=== PATIENT | male | born 1975 | race Caucasian/White ===

== ENCOUNTER 2022-06-27 17:44 | Emergency (ER) | payer BC, MEDICAID, SELFPAY ==
[2022-06-27 17:54] VITALS: BP 171/101; PULSE 94; RESP 20; TEMP 37.6; O2SAT 96; BMI 29.8
--- NOTE | 2022-06-27 18:19 | W.ED.GENADLT ---
HPI - General Adult General: Chief complaint: Fever Stated complaint: fever/chills/post tetanus Time Seen by Provider: 06/27/22 18:02 History of Present Illness: Patient is a 47-year-old male comes to the ED with body aches and fever. 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 Today he woke up and was having soreness and pain in his left arm and also had an mild fever with a temperature at home of 101 and also generalized body aches. Denies in any nausea/vomiting or diarrhea. Denies any recent sick contacts. The laceration was finger appears to be healing well and there is no redness, swelling or any drainage from laceration site. Patient stated he was not sent home on any prophylactic antibiotic after injury. Associated symptoms: Deny chest pain, dyspnea, headache(s), nausea, rash, palpitations or vomiting Review of Systems Const: Reports: fever(s) and body aches; Denies: chills or fatigue Eyes: Denies: change in vision or eye discomfort ENMT: Denies: throat pain, odynophagia, nasal discharge or nasal congestion Card: Denies: chest pain, palpitations, edema, swelling of feet/ankles, dyspnea on exertion or orthopnea Resp: Denies: dyspnea, productive cough or non-productive cough GI: Denies: abdominal pain, nausea, vomiting, diarrhea, constipation or hematochezia : Denies: flank pain, difficulty urinating, dysuria or hematuria Musc: Denies: neck pain, back pain or extremity swelling Skin/Breast: Denies: rash or new lesions Neuro: Denies: headache(s), numbness in extremities or weakness in extremities PFS ED PFSH: Medical History (Updated 06/27/22 @ 22:28 by KAI John) No pertinent family history Surgical History (Updated 06/27/22 @ 22:28 by KAI John) No pertinent past surgical history Physical Exam Const: COMMON NORMALS: no acute distress, patient oriented x3 and alert GENERAL APPEARANCE: cooperative HENMT: COMMON NORMALS: normocephalic HEAD & SCALP: normocephalic MOUTH: Normal oral and palatal mucosa present THROAT: posterior oropharynx normal and uvula midline Neck/C-Spine: COMMON NORMALS: supple GENERAL: Yes normal visual inspection Resp: COMMON NORMALS: normal respiratory effort, No retractions, No use of accessory muscles and clear to auscultation bilaterally AUSCULTATION: clear to auscultation bilaterally Cardio: COMMON NORMALS: regular rate, regular rhythm, S1 normal heart sound present, S2 normal heart sound present, No gallops present (Cardio), No clicks present (Cardio), No murmurs present (Cardio) and Peripheral pulses 2+ throughout RATE: regular rate RHYTHM: regular rhythm HEART SOUNDS: S1 normal heart sound present and S2 normal heart sound present PERIPHERAL PULSES: Peripheral pulses 2+ throughout GI: COMMON NORMALS: Normal to inspection, nondistended, normoactive bowel sounds present, Soft to palpation, non-tender and no masses PALPATION: Yes Soft to palpation : COMMON NORMALS: Yes no CVA tenderness BLADDER/KIDNEY EXAM: Yes no CVA tenderness Back/Pelvis: COMMON NORMALS: no CVA tenderness Extremity: NARRATIVE EXTREMITY EXAM: Patient has a laceration on the left index finger. [address] and laceration appears to be healing well. No signs of any infection, erythema, warmth or drainage noted. No red streaking up arm. GENERAL: Yes normal exam except as noted Neuro: COMMON NORMALS: patient oriented x3 SENSORIUM/ORIENTATION: Yes alert GAIT: Yes Normal gait present Skin: GENERAL SKIN EXAM: dry skin Course Vital Signs: Vital signs: Vital Signs Temperature 99.7 F H 06/27/22 17:54 Pulse Rate 94 06/27/22 17:54 Respiratory Rate 20 H 06/27/22 17:54 Blood Pressure 171/101 06/27/22 17:54 Pulse Oximetry 96 06/27/22 17:54 Oxygen Delivery Me thod 06/27/22 17:54 [facility] - General Adult Medical Decision Making Patient is a 47-year-old male who comes to the ED with fever and body aches. Patient had laceration of finger sutured up yesterday at [facility] and they gave him a shot of tetanus in his left arm. Today he was having a sore left arm with low-grade fever and body aches. Denies any recent sick contacts. Vitals are stable patient is afebrile here in the ED. Exam of patient shows laceration of left index finger healing well with [address] No signs of any infection noted. Rest of exam is benign. Patient's symptoms likely due to to side effect of tetanus vaccine. He was discharged home and given a prophylactic prescription of an antibiotic for his finger laceration. Return ED precautions given. Patient understood agree with plan. Discharge Plan Discharge Patient Disposition: Home Clinical Impression: Tetanus vaccine side effect Condition: Stable Prescriptions: New cephalexin 500 mg capsule 500 mg PO Q6H 4 Days Qty: 16 0RF Discharge Orders: Discharge ED (Routine); Ordered 06/27/22 Ordered By: Juanjo Beck Discharge Diet: Regular Discharge Activity: Increase activity as tolerated Activity Restrictions/Additional Instructions: Follow-up with medical provider as directed in the next 5 to 7 days to have stitches removed. Keep laceration site clean daily with soap and water and then apply triple antibiotic ointment and keep it covered with bandage. take medications as prescribed. Return to the ER or your medical provider if condition worsens. Please read and understand discharge instructions. Thank you for choosing [facility] for your healthcare needs today. Please realize this is an emergency room and that we are providing you with a medical screening exam and this may not be complete and all inclusive of all the testing and or work up that you may need to determine your ailment or severity of your illness. It is very important that you follow up as instructed or that you return to the Emergency Department should you have concerns or if your condition changes or worsens in any way. Coding Level of Care Code ED Menu Planner for Iam Ayala Exam Comprehensive
[2022-06-27] MEDS: cephALEXin 500 mg Capsule PO (18:30)
== END 2022-06-27 18:34 | disposition home or self-care (01) ==
PROVIDERS: Emergency Provider Physician Assistant
DX: R50.83 Postvaccination fever (principal); T50.A95A Adverse effect of other bacterial vaccines, initial encounter; S61.211D Laceration without foreign body of left index finger without damage to nail, subsequent encounter; W31.89XD Contact with other specified machinery, subsequent encounter
CPT/HCPCS: 99283

== ENCOUNTER 2022-07-12 19:41 | Inpatient (IN) | payer BC, SELFPAY ==
[2022-07-12 19:48] VITALS: BP 187/116; PULSE 81; RESP 188; TEMP 36.6; O2SAT 96; BMI 28.5
--- NOTE | 2022-07-12 20:00 | PC.NURSE ---
assumed care of patient at this time.
--- NOTE | 2022-07-12 20:04 | W.ED.GENADLT ---
HPI - General Adult General: Chief complaint: Psychiatric Symptoms Stated complaint: depression Time Seen by Provider: 07/12/22 19:55 History of Present Illness: HPI: [47]yo patient w/ hx of depression presenting to the emergency room for worsening depression. Patient tells me that he does not currently have a plan but he is feelings of suicidal. On arrival, the patient is AAOx3 and cooperative with my evaluation. No focal complaints of chest pain, shortness of breath, palpitations, N/V, focal GI/ complaints. Currently denies SI/HI. No complaints of hallucinations. Onset: chronic Duration: ongoing Location: home Severity: severe Associated symptoms: Deny chest pain, dyspnea, nausea, rash, palpitations or vomiting Review of Systems Const: Denies: fever(s) or chills Eyes: Denies: change in vision ENMT: Denies: mouth pain Card: Denies: chest pain or palpitations Resp: Denies: dyspnea or non-productive cough GI: Denies: abdominal pain, nausea, vomiting or diarrhea : Denies: dysuria Musc: Denies: extremity pain Skin/Breast: Denies: rash or new lesions Neuro: Denies: weakness in extremities Psych: Reports: depression and suicidal ideation Latrell/Lymph: Denies: easy bruising PFSH ED PFSH: Medical History Depression Surgical History No pertinent past surgical history Social History Smoking and tobacco status: never smoked Alcohol intake: never Substance/Drug Use: never Physical Exam Const: COMMON NORMALS: alert HENMT: COMMON NORMALS: atraumatic HEAD & SCALP: atraumatic MOUTH: moist mucous membranes not abnormal Eye: COMMON NORMALS: EOMs intact bilaterally and conjunctivae normal CONJUNCTIVA: Yes conjunctivae normal Neck/C-Spine: COMMON NORMALS: full ROM and supple Resp: COMMON NORMALS: normal respiratory effort and clear to auscultation bilaterally AUSCULTATION: clear to auscultation bilaterally Cardio: COMMON NORMALS: regular rate RATE: regular rate GI: COMMON NORMALS: Soft to palpation and non-tender PALPATION: Yes Soft to palpation Extremity: COMMON NORMALS: full ROM Neuro: SENSORIUM/ORIENTATION: Yes alert MOTOR EXAM: No Abnormal motor strength present and Other motor observations present (no focal motor deficits) Psych: COMMON NORMALS: speech normal SPEECH: Yes normal speech MOOD & AFFECT: Yes depressed mood Course Vital Signs: Vital signs: Vital Signs Temperature 97.9 F 07/12/22 19:48 Pulse Rate 81 07/12/22 19:48 Respiratory Rate 188 H 07/12/22 19:48 Blood Pressure 187/116 07/12/22 19:48 Pulse Oximetry 96 07/12/22 19:48 Oxygen Delivery Me thod 07/12/22 19:48 MDM - General Adult Medical Decision Making [47]yo patient w/ hx of depression presenting for SI and worsenign depression. HDS, exam within normal limit Thoughts are linear and organized, and the patient has no AH/VH, or HI. Clinically the patient displays no overt toxidrome; they are well appearing, with low suspicion for toxic ingestion given history and exam. Symptoms unlikely 2/2 anemia, hypothyroidism, infection, or ICH. Workup: CBC, CMP, Lipase, salicylate/tylenol, serum ethanol, UDS Lab findings: wnl [8:45pm] On reassessment, labs and workup wnl. Patient is hemodynamically stable with no acute medical complaints. Case discussed with psychiatric provider Dr. Montalvo at [facility] psych inpatient with recommendation for admission Disposition: Psych Discharge Plan Discharge Patient Disposition: Admitted As Inpatient Clinical Impression: Depression, Depression with suicidal ideation Condition: Stable Coding Level of Care Code ED Switchboard Operator Receptionist for Iam Fwd Exam Comprehensive
[2022-07-12 20:24] VITALS: PULSE 97; RESP 16; O2SAT 97
[2022-07-12 20:33] LABS: Basophils # 0.1 10^3/uL (0.0-0.1); Basophils % 0.6 %; Eosinophils # 0.2 10^3/uL (0.0-0.8); Eosinophils % 1.7 %; Hemoglobin 15.7 g/dL (11.7-16.6); Lymphocytes # 3.6 10^3/uL (0.8-4.8); Lymphocytes % 32.1 %; Mean Corpuscular HGB Conc 34.1 g/dL (30.0-36.0); Mean Corpuscular Hemoglobin 31.2 pg (28.0-34.0); Mean Corpuscular Volume 91.3 fl (80-94); Mean Platelet Volume 11.5 fL (7.4-10.4); Monocytes # 0.7 10^3/uL (0.2-0.9); Monocytes % 5.8 %; Neutrophils # 6.62 10^3/uL (1.8-7.7); Neutrophils % 59.5 %; Nucleated Red Blood Cells % 0 %; Platelet Count 388 10^3/cmm (130-400); Red Blood Count 5.04 10^6/uL (4.1-5.3); Red Cell Distribution Width 11.7 % (12.1-15.1); White Blood Count 11.1 10^3/uL (4.0-10.0)
[2022-07-12 20:50] LABS: Alanine Aminotransferase 24 U/L (0-41); Albumin Level 4.2 g/dL (3.5-5.2); Alkaline Phosphatase 84 U/L (40-130); Anion Gap 14.5 (5-19); Aspartate Amino Transferase 15 U/L (0-40); Blood Urea Nitrogen 18 mg/dL (6-20); Calcium 9.7 mg/dL (8.5-10.5); Carbon Dioxide 25 mmol/L (22-29); Chloride 104 mmol/L (98-107); Globulin 3.1 g/dL (1.3-4.6); Glomerular Filtration Rate 90.8 mL/min (90-130); Glucose 90 mg/dL (65-115); Lipase 22 U/L (13-60); Osmolality Calculated 291 mOsm/kg (285-295); Potassium 3.5 mmol/L (3.5-5.1); Sodium 140 mmol/L (136-145); Total Bilirubin 0.2 mg/dL (0.15-1.2); Total Protein 7.3 g/dL (6.6-8.7)
[2022-07-12 20:51] LABS: Acetaminophen < 5.0 ug/mL (10-30); Alcohol Level < 10 mg/dL (0-10); Salicylate < 0.3 mg/dL (3-10)
[2022-07-12 21:00] VITALS: BP 143/58; PULSE 79; RESP 19; O2SAT 98
[2022-07-12 21:05] LABS: Amphetamines Screen Urine Negative (Negative); Barbiturates Screen Urine Negative (Negative); Benzodiazepines Screen Urine Negative (Negative); Cocaine Screen Urine Negative (Negative); Opiate Screen Urine Negative (Negative); PCP Screen Urine Negative (Negative); THC Screen Urine Negative (Negative)
[2022-07-12 21:55] VITALS: O2SAT 100
[2022-07-12 22:11] VITALS: BP 144/87; PULSE 78; RESP 20; TEMP 36.8; O2SAT 98
[2022-07-12] MEDS: trazodone 50 mg Tablet PO (22:28)
[2022-07-12] MEDS: hyDROXYzine 25 mg Capsule 50 MG PO (22:28)
[2022-07-13 06:00] VITALS: BP 139/83; PULSE 74; RESP 17; TEMP 36.4; O2SAT 94
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
[2022-07-13 14:00] VITALS: BP 148/96; PULSE 94; RESP 16; TEMP 36.8; O2SAT 95
[2022-07-13] MEDS: fluoxetine 20 mg Capsule PO (17:33)
[2022-07-13 20:04] VITALS: PULSE 95; RESP 18; TEMP 36.7
[2022-07-13] MEDS: hyDROXYzine 25 mg Capsule 50 MG PO (20:19)
[2022-07-14 06:00] VITALS: BP 162/104; PULSE 84; RESP 18; O2SAT 98
[2022-07-14] MEDS: fluoxetine 20 mg Capsule PO (08:01)
[2022-07-14] MEDS: OLANZapine 5 mg ODT PO ×2 (09:36→16:08)
[2022-07-14] MEDS: nicotine 4 mg lozenge MUCOUS MEM ×3 (09:48→19:20)
[2022-07-14 14:00] VITALS: BP 145/83; PULSE 70; RESP 18; TEMP 36.8; O2SAT 93
[2022-07-14] MEDS: propranolol 20 mg Tablet PO ×2 (16:10→21:17)
--- NOTE | 2022-07-14 17:52 | P.NPUPN_ITS ---
Subjective NPU Subjective: Patient presents today reporting that he is not feeling any better but he does not feel worse. We discussed avoiding some as needed's and sticking to the propranolol for breakthrough anxiety. We discussed considering discharge when he was feeling safe and that the medications might offer him some relief with overwhelming anxiety and depression that he has been reporting. He reported he has been sleeping a lot identified how he probably needed to get some rest. We discussed taking the when can I discharge question 1 day at a time. Mental Status Exam MSE Comments: This is an overweight white male with limited grooming and eye contact. No abnormal movements except for psychomotor retardation. Cooperative with exam in moderate distress. Speech was decreased rate and volume. Mood described as depressed, affect is less tearful and labile. Thought process, organized. Thought content: patient denies suicidal or homicidal ideation, no delusions reported or noted and denies any auditory or visual hallucinations. Attention and concentration are intact and memory appeared reliable but none were formally tested. He is alert and oriented three times. Insight and judgment are fair. Impulse control is fair. Vitals/I&O/Wt Last Vital Signs Temp 97.6 F 07/14/22 19:41 Pulse 73 07/14/22 19:41 Resp 18 07/14/22 19:41 BP 144/101 07/14/22 19:41 Pulse Ox 94 07/14/22 19:41 O2 Del Method 07/14/22 14:00 Data NPU : 07/12/22 20:24 07/12/22 20:24 A&P Assessment and plan (1) Major depressive disorder, recurrent: Status: Acute (2) Adjustment disorder with mixed disturbance of emotions and conduct: Status: Acute (3) Depression with suicidal ideation: Status: Acute (4) Anxiety disorder, unspecified: Status: Acute Plan This is a 47 year old white male with positive trauma and genetic loading for addiction issues who presents after recently losing his children reporting depression and anxiety over the process of getting his children back which has been slow moving and open to starting medications at this time. 1. Started Prozac 20 mg po qam 2. Started Propranolol 20 mg poq tid prn 3. Encourage individual, group and milieu therapy 4. Continue q-15 minute check for safety 5. Recommend sober living treatment at the highest level of care to which the patient is willing to commit. Involuntary Hold Information 96 Hour Hold: 96 Hour Involuntary Admission: No Attestations NPU Medical Necessity Statement*: Inpatient hospitalization is medically necessary and the clinically appropriate intervention at this time. We will monitor medications and make changes as indicated. Likely length of stay is 1-4 days. Coding Level of Care Code Acute Shot Core Drill Operator for Chg Fwd Diagnoses Major depressive disorder, recurrent F33.9 Adjustment disorder with mixed disturbance of emotions and conduct F43.25 Depression with suicidal ideation F32.A; R45.851 Anxiety disorder, unspecified F41.9
[2022-07-14 19:41] VITALS: BP 144/101; PULSE 73; RESP 18; TEMP 36.4; O2SAT 94
[2022-07-14] MEDS: trazodone 50 mg Tablet PO (21:18)
[2022-07-15 06:00] VITALS: BP 143/89; PULSE 70; RESP 18; TEMP 36.7; O2SAT 95
[2022-07-15] MEDS: nicotine 4 mg lozenge MUCOUS MEM ×4 (07:37→13:18)
[2022-07-15] MEDS: hyDROXYzine 25 mg Capsule 50 MG PO (08:31)
[2022-07-15] MEDS: fluoxetine 20 mg Capsule PO (08:31)
--- NOTE | 2022-07-15 11:18 | W.PM.NPUDCS ---
Diagnoses at Discharge Discharge Diagnosis (1) Major depressive disorder, recurrent: Status: Acute (2) Adjustment disorder with mixed disturbance of emotions and conduct: Status: Acute (3) Depression with suicidal ideation: Status: Resolved (4) Anxiety disorder, unspecified: Status: Acute Reason for Visit Reason for Visit: depression Involuntary Hold Information 96 Hour Hold: 96 Hour Involuntary Admission: No Mental Status Exam MSE Comments: This is an overweight white male with limited grooming and eye contact. No abnormal movements except for psychomotor retardation. Cooperative with exam in moderate distress. Speech was decreased rate and volume. Mood described as , affect is less tearful and labile. Thought process, organized. Thought content: patient denies suicidal or homicidal ideation, no delusions reported or noted and denies any auditory or visual hallucinations. Attention and concentration are intact and memory appeared reliable but none were formally tested. He is alert and oriented three times. Insight and judgment are fair. Impulse control is fair. Discharge Data Studies Completed and Pending: Laboratory Results WBC 11.1 10^3/uL (4.0 -10.0) H 07/12/22 20:24 RBC 5.04 10^6/uL (4.1 -5.3) 07/12/22 20:24 Hgb 15.7 g/dL (11.7-1 6.6) 07/12/22 20:24 Hct 46.0 % (42.0-52.0 ) 07/12/22 20:24 MCV 91.3 fl (80-94) 07/12/22 20:24 MCH 31.2 pg (28.0-34. 0) 07/12/22 20:24 MCHC 34.1 g/dL (30.0-3 6.0) 07/12/22 20:24 RDW 11.7 % (12.1-15.1 ) L 07/12/22 20:24 Plt Count 388 10^3/cmm (130 -400) 07/12/22 20:24 MPV 11.5 fL (7.4-10.4 ) H 07/12/22 20:24 Neut % (Auto) 59.5 % 07/12/22 20:24 Lymph % (Auto) 32.1 % 07/12/22 20:24 Elliott % (Auto) 5.8 % 07/12/22 20:24 Eos % (Auto) 1.7 % 07/12/22 20:24 Baso % (Auto) 0.6 % 07/12/22 20:24 Neut # (Auto) 6.62 10^3/uL (1.8 -7.7) 07/12/22 20:24 Lymph # (Auto) 3.6 10^3/uL (0.8- 4.8) 07/12/22 20:24 Elliott # (Auto) 0.7 10^3/uL (0.2- 0.9) 07/12/22 20:24 Eos # (Auto) 0.2 10^3/uL (0.0- 0.8) 07/12/22 20:24 Baso # (Auto) 0.1 10^3/uL (0.0- 0.1) 07/12/22 20:24 Nucleated RBC % (a uto) 0 % 07/12/22 20:24 Nucleated RBCs # 0.0 /100WBC 07/12/22 20:24 Sodium 140 mmol/L (136-1 45) 07/12/22 20:24 Potassium 3.5 mmol/L (3.5-5 .1) 07/12/22 20:24 Chloride 104 mmol/L (98-10 7) 07/12/22 20:24 Carbon Dioxide 25 mmol/L (22-29) 07/12/22 20:24 Anion Gap 14.5 (5-19) 07/12/22 20:24 BUN 18 mg/dL (6-20) 07/12/22 20:24 Creatinine 0.9 mg/dL (0.7-1. 2) 07/12/22 20:24 GFR Calculation 90.8 mL/min (90-1 30) 07/12/22 20:24 Glucose 90 mg/dL (65-115) 07/12/22 20:24 Calculated Osmolal ity 291 mOsm/kg (285- 295) 07/12/22 20:24 Calcium 9.7 mg/dL (8.5-10 .5) 07/12/22 20:24 Total Bilirubin 0.2 mg/dL (0.15-1 .2) 07/12/22 20:24 AST 15 U/L (0-40) 07/12/22 20:24 ALT 24 U/L (0-41) 07/12/22 20:24 Alkaline Phosphata se 84 U/L (40-130) 07/12/22 20:24 Total Protein 7.3 g/dL (6.6-8.7 ) 07/12/22 20:24 Albumin 4.2 g/dL (3.5-5.2 ) 07/12/22 20:24 Globulin 3.1 g/dL (1.3-4.6 ) 07/12/22 20:24 Lipase 22 U/L (13-60) 07/12/22 20:24 Salicylates < 0.3 mg/dL (3-10 ) L 07/12/22 20:24 Urine Opiates Scre en Negative ng/mL (N egative) 07/12/22 20:26 Acetaminophen < 5.0 ug/mL (10-3 0) L 07/12/22 20:24 Ur Barbiturates Sc reen Negative ng/mL (N egative) 07/12/22 20:26 Ur Phencyclidine S crn Negative ng/mL (N egative) 07/12/22 20:26 Ur Amphetamines Sc reen Negative ng/mL (N egative) 07/12/22 20:26 U Benzodiazepines Scrn Negative ng/mL (N egative) 07/12/22 20:26 Urine Cocaine Scre en Negative ng/mL (N egative) 07/12/22 20:26 U Marijuana (THC) Screen Negative ng/mL (N egative) 07/12/22 20:26 Ethyl Alcohol < 10 mg/dL (0-10) 07/12/22 20:24 Vitals: Last Vital Signs Temp 98.0 F 07/15/22 06:00 Pulse 70 07/15/22 06:00 Resp 18 07/15/22 06:00 BP 143/89 07/15/22 06:00 Pulse Ox 95 07/15/22 06:00 O2 Del Method 07/14/22 14:00 Discharge Plan Discharge Patient Disposition: Home Condition: Stable Prescriptions: New trazodone 50 mg Tablet 50 mg PO BEDTIME PRN (Reason: Sleep) 30 Days Qty: 30 1RF propranolol 20 mg Tablet 20 mg PO TID PRN (Reason: Anxiety) 30 Days Qty: 30 1RF fluoxetine 20 mg Capsule 20 mg PO DAILY 30 Days Qty: 30 1RF Discharge Orders: Discharge Order (Routine); Ordered 07/15/22 Ordered By: Braulio Montalvo Referrals: [facility] [Outside] - 1-3 days (Carolynn Chance will call for an initial assessment) Hari Clark MD [Physician] - 07/29/22 1:00 pm Discharge Diet: Regular Discharge Activity: Resume usual activity Patient Instructions: Depression (DC), Anxiety (ED), Opioid Safety Discharge Attestations NPU Time Spent in Discharge Care*: less than 30 min Specific Discharge Activities: Specific discharge activities: educating patient, discussing with machine adjuster leader case trim/social workers/dc planners, documenting/other paperwork and evaluating patient/reviewing data Coding Level of Care Code Acute Chg FW DC note Diagnoses Major depressive disorder, recurrent F33.9 Adjustment disorder with mixed disturbance of emotions and conduct F43.25 Depression with suicidal ideation F32.A; R45.851 Anxiety disorder, unspecified F41.9
[2022-07-15 12:22] VITALS: BP 143/89; PULSE 70; RESP 18; TEMP 36.7; O2SAT 95
== END 2022-07-15 13:27 | disposition home or self-care (01) | DRG 885 ==
LOC: ER 20:03 → NP 21:22
PROVIDERS: Admitting Provider Psychiatry & Neurology Psychiatry; Emergency Provider Emergency Medicine; Visit Provider Psychiatry & Neurology Psychiatry
DX: F33.9 Major depressive disorder, recurrent, unspecified (principal); R45.851 Suicidal ideations; F17.210 Nicotine dependence, cigarettes, uncomplicated; F43.25 Adjustment disorder with mixed disturbance of emotions and conduct; F41.9 Anxiety disorder, unspecified
CPT/HCPCS: 80053; 80306; 80307; 83690; 85025; 97165; 99285

== ENCOUNTER 2022-09-28 10:08 | Emergency (ER) | payer BC, MEDICAID, SELFPAY ==
[2022-09-28 10:49] VITALS: BP 158/87; PULSE 108; RESP 20; TEMP 37.7; O2SAT 97; BMI 28.6
--- NOTE | 2022-09-28 10:55 | XR_ITS ---
WS: [id number] XR chest 1V portable [id number] REASON FOR EXAM: fever FINDINGS: The heart and mediastinum are within normal limits. Azygos lobe and vein, normal variant, present. Calcified granulomatous disease bilaterally. No active pulmonary parenchymal or pleural disease. XR/XR chest 1V portable [id number] IMPRESSION: No acute chest abnormality.
--- NOTE | 2022-09-28 11:24 | CT_ITS ---
WS: [id number] CT HEAD TECHNIQUE: Noncontrast CT of the head obtained from the skullbase to the vertex. CLINICAL INFORMATION: left side numbness COMPARISON: None. DLP: 1019.[address] scans at [facility] use at least one of these dose optimization techniques: automated e xposure control; mA and/or kV adjustment per patient size (includes targeted exams where dose is matc hed to clinical indication); or iterative reconstruction. FINDINGS: No evidence of intracranial hemorrhage or mass effect. Ventricular system and basal cisterns are schneider nt. No extra-axial fluid collections. No evidence of mass or mass effect. Normal martinez-white different iation. Mild mucosal thickening ethmoid air cells. Mastoid air cells are well aerated. CT/CT head wo con* [id number] IMPRESSION: 1. No evidence of intracranial hemorrhage or mass effect. 2. No acute intracranial findings.
--- NOTE | 2022-09-28 11:30 | W.ED.GENADLT ---
HPI - General Adult General: Chief complaint: Fever Stated complaint: flu like symptoms Time Seen by Provider: 09/28/22 10:56 History of Present Illness: Patient is a 47-year-old male comes to the ED with multiple complaints. He is having some left-sided numbness in his left hand and left foot. Symptoms started 2 days ago. His other complaint is flulike symptoms a cough, nasal congestion and drainage, fevers, chills and body aches for the past 4 days. He has had a couple episodes of emesis but has been able to keep p.o. fluids down for the past 24 hours. Patient has a daily tobacco smoker. Associated symptoms: Reports nausea and vomiting; Deny chest pain, dyspnea, headache(s), rash or palpitations Review of Systems Const: Reports: fever(s), chills and body aches; Denies: fatigue Eyes: Denies: change in vision or eye discomfort ENMT: Reports: nasal discharge and nasal congestion; Denies: throat pain or odynophagia Card: Denies: chest pain, palpitations, edema, swelling of feet/ankles, dyspnea on exertion or orthopnea Resp: Reports: productive cough; Denies: dyspnea or non-productive cough GI: Reports: nausea and vomiting; Denies: abdominal pain, diarrhea, constipation or hematochezia : Denies: flank pain, difficulty urinating, dysuria or hematuria Musc: Denies: neck pain, back pain or extremity swelling Skin/Breast: Denies: rash or new lesions Neuro: Denies: headache(s), numbness in extremities or weakness in extremities FORMERLY [facility], [facility]–1983 ED PFSH: Medical History Depression Depression Surgical History No pertinent past surgical history Family History Brother Suicide Social History Smoking and tobacco status: never smoked Alcohol intake: never Physical Exam Const: COMMON NORMALS: patient oriented x3 and alert GENERAL APPEARANCE: cooperative HENMT: COMMON NORMALS: normocephalic HEAD & SCALP: normocephalic MOUTH: Normal oral and palatal mucosa present THROAT: posterior oropharynx normal and uvula midline Eye: COMMON NORMALS: Equal, round and reactive pupils present and EOMs intact bilaterally GENERAL EYE: appearance normal, both eyes and all related structures PUPIL: Yes Equal, round and reactive pupils present Neck/C-Spine: COMMON NORMALS: supple GENERAL: Yes normal visual inspection Lymph: LYMPHATIC: no lymphadenopathy noted Resp: COMMON NORMALS: normal respiratory effort, No retractions, No use of accessory muscles and clear to auscultation bilaterally AUSCULTATION: clear to auscultation bilaterally Cardio: COMMON NORMALS: regular rate, regular rhythm, S1 normal heart sound present, S2 normal heart sound present, No gallops present (Cardio), No clicks present (Cardio), No murmurs present (Cardio) and Peripheral pulses 2+ throughout RATE: regular rate RHYTHM: regular rhythm HEART SOUNDS: S1 normal heart sound present and S2 normal heart sound present PERIPHERAL PULSES: Peripheral pulses 2+ throughout GI: COMMON NORMALS: Normal to inspection, nondistended, normoactive bowel sounds present, Soft to palpation, non-tender and no masses PALPATION: Yes Soft to palpation : COMMON NORMALS: Yes no CVA tenderness BLADDER/KIDNEY EXAM: Yes no CVA tenderness Back/Pelvis: COMMON NORMALS: no CVA tenderness Extremity: GENERAL: Yes normal exam except as noted LEFT UPPER EXTREMITY: Yes wrist Left wrist: Yes inspection (Normal) and Yes special tests Left wrist special tests: Phalen's test: Positive (+ Phalen's test left wrist) Neuro: COMMON NORMALS: patient oriented x3, CN's II-XII intact bilaterally, moves all extremities, no focal motor deficits and no sensory deficits noted SENSORIUM/ORIENTATION: Yes alert SENSORY EXAM: Yes extremities (intact) MOTOR EXAM: 5/5 motor strength present throughout Skin: COMMON NORMALS: no rashes or lesions noted GENERAL SKIN EXAM: no rashes or lesions noted and dry skin Course Vital Signs: Vital signs: Vital Signs Temperature 99.9 F H 09/28/22 10:49 Pulse Rate 108 H 09/28/22 10:49 Respiratory Rate 20 H 09/28/22 10:49 Blood Pressure 158/87 09/28/22 10:49 Pulse Oximetry 97 09/28/22 10:49 Oxygen Delivery Me thod 09/28/22 10:49 [facility] - General Adult Medical Decision Making Patient is a 47-year-old male comes to the ED with multiple complaints. He is having some left-sided numbness in his left hand and left foot. Symptoms started 2 days ago. His other complaint is flulike symptoms a cough, nasal congestion and drainage, fevers, chills and body aches for the past 4 days. He has had a couple episodes of emesis but has been able to keep p.o. fluids down for the past 24 hours. Vitals are stable. Exam shows positive Phalen's sign on left wrist indicative of carpal tunnel syndrome. The rest of exam is benign. Neuro exam showed no deficits. Head CT showed no acute findings. Chest x-ray showed no acute findings. COVID was negative. Patient was given dose of Toradol and then Tylenol here in the ED to help with body aches and headache. Patient was diagnosed with bronchitis and carpal tunnel syndrome. He was discharged home with a prescription for azithromycin, Medrol Dosepak and Tessalon Perles. Follow-up with PCP within the next week for reevaluation. Return to ED precautions given. Patient understood and agreed with plan. Lab Data Radiology Impressions Chest X-Ray 09/28/22 10:55 IMPRESSION: No acute chest abnormality. Head CT 09/28/22 11:24 IMPRESSION: 1. No evidence of intracranial hemorrhage or mass effect. 2. No acute intracranial findings. Laboratory Results SARS-CoV-2 Ag (Rapid) negative (Negative) 09/28/22 12:11 Discharge Plan Discharge Patient Disposition: Home Clinical Impression: Bronchitis, Carpal tunnel syndrome of left wrist Condition: Stable Prescriptions: New Medrol (Ray) 4 mg tablets,dose pack See Rx Instructions .ROUTE .COMPLEX Qty: 21 0RF Rx Instructions: orally per package directions azithromycin 250 mg tablet See Rx Instructions .ROUTE .COMPLEX Qty: 6 0RF Rx Instructions: For 250 mg dose pack: take 500 mg today (day 1), then 250 mg for 4 days (days 2-5) benzonatate 100 mg capsule 100 mg PO TID PRN (Reason: cough) Qty: 20 0RF No Action trazodone 50 mg Tablet 50 mg PO BEDTIME PRN (Reason: Sleep) 30 Days Qty: 30 1RF propranolol 20 mg Tablet 20 mg PO TID PRN (Reason: Anxiety) 30 Days Qty: 30 1RF fluoxetine 20 mg Capsule 20 mg PO DAILY 30 Days Qty: 30 1RF Discharge Orders: Discharge ED (Routine); Ordered 09/28/22 Ordered By: Juanjo Beck Discharge Diet: Regular Discharge Activity: Increase activity as tolerated Patient Instructions: Bronchitis (Acute) - Adult Activity Restrictions/Additional Instructions: Follow-up with medical provider as directed in the next 5-7 days for reevaluation. Take medications as prescribed. Return to the ER or your medical provider if condition worsens. Please read and understand discharge instructions. Thank you for choosing [facility] for your healthcare needs today. Please realize this is an emergency room and that we are providing you with a medical screening exam and this may not be complete and all inclusive of all the testing and or work up that you may need to determine your ailment or severity of your illness. It is very important that you follow up as instructed or that you return to the Emergency Department should you have concerns or if your condition changes or worsens in any way. Coding Level of Care Code ED Front End Java Developer for Iam Ayala Exam Comprehensive
[2022-09-28] MEDS: ketorolac 60 mg/2 mL INJ IM (11:50)
[2022-09-28] MEDS: acetaminophen 500 mg Tablet 1000 MG PO (13:20)
[2022-09-28 13:28] LABS: SARS Covid-2 Antigen negative (Negative)
== END 2022-09-28 13:25 | disposition home or self-care (01) ==
PROVIDERS: Emergency Provider Physician Assistant
DX: J40 Bronchitis, not specified as acute or chronic (principal); G56.02 Carpal tunnel syndrome, left upper limb
CPT/HCPCS: 70450; 71045; 87426; 96372; 99285; J1885

== ENCOUNTER 2024-12-26 18:27 | Emergency (ER) | payer SELFPAY ==
[2024-12-26 18:48] VITALS: BP 159/98; PULSE 110; RESP 16; TEMP 36.9; O2SAT 97; BMI 24.4
--- NOTE | 2024-12-26 20:41 | CTR_ITS ---
PROCEDURE INFORMATION: Exam: CT Abdomen And Pelvis Without Contrast Exam date and time: 12/26/2024 9:18 PM Age: 49 years old Clinical indication: Abdominal pain; Flank; Left lower quadrant (llq); Additional info: Abd pain TECHNIQUE: Imaging protocol: Computed tomography of the abdomen and pelvis without contrast. Radiation optimization: All CT scans at this facility use at least one of these dose optimization techniques: automated exposure control; mA and/or kV adjustment per patient size (includes targeted exams where dose is matched to clinical indication); or iterative reconstruction. COMPARISON: CR XR chest 1V portable [id number] 09/28/2022 12:30 PM RADIATION DOSE METRICS: Total DLP (mGy-cm): 718.53 FINDINGS: Lungs: Unremarkable. Liver: Normal. No mass. Gallbladder and biliary ducts: Normal. No calcified stones. No ductal dilation. Pancreas: Normal. No ductal dilation. Spleen: Normal. No splenomegaly. Adrenal glands: Normal. No mass. Kidneys and ureters: No hydronephrosis or obstructing calculi bilaterally. Mild bilateral perinephric fat stranding. Stomach and bowel: Large colonic stool burden. Appendix: No evidence of appendicitis. Intraperitoneal space: Unremarkable. No free air. No significant fluid collection. Vasculature: Unremarkable. No abdominal aortic aneurysm. Lymph nodes: Unremarkable. No enlarged lymph nodes. Urinary bladder: Diffuse circumferential bladder wall thickening. Reproductive: Unremarkable as visualized. Bones/joints: Unremarkable. No acute fracture. Soft tissues: Small bilateral inguinal hernias. CT/CT kidney stone [id number] IMPRESSION: 1. Diffuse circumferential bladder wall thickening. Correlate with urinalysis for cystitis. 2. No hydronephrosis or obstructing calculi bilaterally, however there is mild bilateral perinephric fat stranding. Findings are nonspecific but may be seen with underlying infectious process. 3. Large colonic stool burden, which may be seen with constipation.
[2024-12-26 20:46] LABS: Bilirubin Urine Negative (Negative); Blood Urine Negative (Negative); Glucose Urine UA Negative (Normal); Ketones Urine Negative (Negative); Leukocyte Esterase Urine Negative (Negative); Nitrate Urine Negative (Negative); Protein Urine Negative (Negative); Urine Appearance Cloudy (CLEAR); Urine Color Yellow (Yellow); pH Urine 6.5 (5-7)
--- NOTE | 2024-12-26 20:53 | W.ED.ABDPA2 ---
HPI - Abdominal Pain General: Chief Complaint: Abdominal Pain Stated Complaint: low left abd/ side pain Time Seen by Provider: 12/26/24 20:31 Source: patient Mode of arrival: ambulatory Limitations: no limitations History of Present Illness: 49-year-old male states been having left lower quadrant abdominal pain while some flank pain he states been going on for 2 to 3 months. He states it is worsened he is having sharp pains he rates the pain a 5 out of 10 currently denies any fevers denies any diarrhea denies any dysuria he states he is a heavy drinker. Associated Symptoms: Denies chills, dysuria and fever(s) Related Data Previous Rx's ?Medication ?Instructions ?Recorded ondansetron 4 mg disintegrating 4 mg PO Q6H PRN nausea and 12/26/24 tablet vomiting #14 tabs pantoprazole 40 mg tablet,delayed 40 mg PO DAILY #60 tabs 12/26/24 release (Protonix) polyethylene glycol 3350 17 gram 17 g PO DAILY PRN constipation #14 12/26/24 oral powder packet (Miralax) ea Allergies Allergy/AdvReac Type Severity Reaction Status Date / Time No Known Allergies Allergy Verified 12/26/24 18:48 Review of Systems Const: Denies: fever(s), chills, body aches or change in appetite ENMT: Denies: throat pain or dental pain Card: Denies: chest pain Resp: Denies: dyspnea GI: Reports: abdominal pain : Denies: dysuria Musc: Denies: neck pain or back pain Skin/Breast: Denies: rash Neuro: Denies: headache(s) PFSH ED PFSH: Medical History Depression Depression Surgical History No pertinent past surgical history Family History Brother Suicide Social History Smoking and tobacco/nicotine status: never used tobacco/nicotine Alcohol intake: never Substance/Drug Use: never Physical Exam Const: COMMON NORMALS: no acute distress, patient oriented x3 and healthy appearing HENMT: COMMON NORMALS: normocephalic and atraumatic HEAD & SCALP: normocephalic and atraumatic Eye: COMMON NORMALS: conjunctivae normal CONJUNCTIVA: Yes conjunctivae normal Neck/C-Spine: COMMON NORMALS: full ROM and supple Chest: COMMONS NORMALS: normal inspection of the chest Resp: COMMON NORMALS: normal respiratory effort Cardio: COMMON NORMALS: regular rate, regular rhythm and No murmurs present (Cardio) RATE: regular rate RHYTHM: regular rhythm GI: COMMON NORMALS: Normal to inspection, nondistended, normoactive bowel sounds present, Soft to palpation and no masses PALPATION: Yes Soft to palpation and Yes Tenderness to palpation present (GI) Details: LLQ Extremity: COMMON NORMALS: normal to inspection and full ROM Neuro: COMMON NORMALS: patient oriented x3, moves all extremities and no focal motor deficits Psych: COMMON NORMALS: mental status grossly normal, Normal thought process present and cooperative THOUGHT PROCESS: Normal thought process present Skin: COMMON NORMALS: no rashes or lesions noted and no wounds GENERAL SKIN EXAM: no rashes or lesions noted Course Vital Signs: Vital signs: Vital Signs Temperature 98.4 F 12/26/24 18:48 Pulse Rate 110 H 12/26/24 18:48 Respiratory Rate 16 12/26/24 18:48 Blood Pressure 159/98 12/26/24 18:48 Pulse Oximetry 97 12/26/24 18:48 MDM - Abdominal Pain Medical Decision Making Patient presents here with abdominal pain CT scan blood work is normal no signs of acute surgical abdomen we will get him follow-up with surgeon will place him on Protonix he is return if worsening he understands agrees to plan Medical Records I reviewed the patient's medical records. Lab Data I reviewed the patient's lab results. 12/26/24 21:02 12/26/24 21:02 Labs/Radiology: Radiology Impressions Abdomen/Pelvis CT 12/26/24 20:41 IMPRESSION: 1. Diffuse circumferential bladder wall thickening. Correlate with urinalysis for cystitis. 2. No hydronephrosis or obstructing calculi bilaterally, however there is mild bilateral perinephric fat stranding. Findings are nonspecific but may be seen with underlying infectious process. 3. Large colonic stool burden, which may be seen with constipation. Laboratory Results WBC 7.60 10^3/uL (3.29-11.43) 12/26/24 21:02 RBC 5.74 10^6/uL (3.85-5.65) H 12/26/24 21:02 Hgb 18.10 g/dL (11.27-16.99) H 12/26/24 21:02 Hct 55.1 % (37-53) H 12/26/24 21:02 MCV 96.0 fl (82-101) 12/26/24 21:02 MCH 31.5 pg (27-33) 12/26/24 21:02 MCHC 32.8 g/dL (30-55) 12/26/24 21:02 RDW 13.0 % (12.1-15.1) 12/26/24 21:02 Plt Count 287 10^3/cmm (157-399) 12/26/24 21:02 MPV 11.1 fL (7.4-10.4) H 12/26/24 21:02 Neut % (Auto) 56.0 % 12/26/24 21:02 Lymph % (Auto) 34.3 % 12/26/24 21:02 Wilkin % (Auto) 6.2 % 12/26/24 21:02 Eos % (Auto) 2.2 % 12/26/24 21:02 Baso % (Auto) 0.9 % 12/26/24 21:02 Neut # (Auto) 4.25 10^3/uL (1.8-7.7) 12/26/24 21:02 Lymph # (Auto) 2.6 10^3/uL (0.8-4.8) 12/26/24 21:02 Wilkin # (Auto) 0.5 10^3/uL (0.2-0.9) 12/26/24 21:02 Eos # (Auto) 0.2 10^3/uL (0.0-0.8) 12/26/24 21:02 Baso # (Auto) 0.1 10^3/uL (0.0-0.1) 12/26/24 21:02 Nucleated RBC % (auto) 0 % 12/26/24 21:02 Nucleated RBCs # 0.0 /100WBC 12/26/24 21:02 Sodium 137 mmol/L (136-145) 12/26/24 21:02 Potassium 4.3 mmol/L (3.5-5.1) 12/26/24 21:02 Chloride 102 mmol/L (98-107) 12/26/24 21:02 Carbon Dioxide 20 mmol/L (22-29) L 12/26/24 21:02 Anion Gap 19.3 (5-19) H 12/26/24 21:02 BUN 11 mg/dL (6-20) 12/26/24 21:02 Creatinine 0.9 mg/dL (0.7-1.2) 12/26/24 21:02 GFR Calculation 90.1 mL/min (90-130) 12/26/24 21:02 Glucose 131 mg/dL (65-115) H 12/26/24 21:02 Calculated Osmolality 285 mOsm/kg (285-295) 12/26/24 21:02 Calcium 9.2 mg/dL (8.5-10.5) 12/26/24 21:02 Total Bilirubin 0.3 mg/dL (0.15-1.2) 12/26/24 21:02 AST 37 U/L (0-40) 12/26/24 21:02 ALT 47 U/L (0-41) H 12/26/24 21:02 Alkaline Phosphatase 95 U/L (40-130) 12/26/24 21:02 Total Protein 7.6 g/dL (6.6-8.7) 12/26/24 21:02 Albumin 4.4 g/dL (3.5-5.2) 12/26/24 21:02 Globulin 3.2 g/dL (1.3-4.6) 12/26/24 21: Lipase 18 U/L (13-60) 12/26/24 21:02 Urine Color Yellow (Yellow) 12/26/24 20:40 Urine Appearance Cloudy (CLEAR) A 12/26/24 20:40 Urine pH 6.5 (5-7) 12/26/24 20:40 Ur Specific H[place]ill 1.010 (1.005-1.030) 12/26/24 20:40 Urine Protein Negative (Negative) 12/26/24 20:40 Urine Glucose (UA) Negative (Normal) 12/26/24 20:40 Urine Ketones Negative (Negative) 12/26/24 20:40 Urine Blood Negative (Negative) 12/26/24 20:40 Urine Nitrate Negative (Negative) 02/25/25 20:40 Urine Bilirubin Negative (Negative) 12/26/24 20:40 Urine Urobilinogen 1.0 mg/dL (Negative) 12/26/24 20:40 Ur Leukocyte Esterase Negative (Negative) 12/26/24 20:40 Urine RBC None /hpf (0-2) 12/26/24 20:40 Urine WBC 0-4 /hpf (0-5) H 12/26/24 20:40 Ur Squamous Epith Cells None /hpf (0-5) 12/26/24 20:40 Amorphous Sediment Not Reportable 12/26/24 20:40 Urine Bacteria Trace /hpf (NONE) 12/26/24 20:40 All radiology interpretation(s) finalized by discharge Discharge Plan Discharge Patient Disposition: Home Clinical Impression: Abdominal pain, Constipation Condition: Stable Prescriptions: New polyethylene glycol 3350 [Miralax] 17 gram powder in packet 17 g PO DAILY PRN (Reason: constipation) Qty: 14 0RF pantoprazole [Protonix] 40 mg tablet,delayed release (DR/EC) 40 mg PO DAILY Qty: 60 0RF ondansetron 4 mg tablet,disintegrating 4 mg PO Q6H PRN (Reason: nausea and vomiting) Qty: 14 0RF Discharge Orders: Discharge ED (Routine); Ordered 12/26/24 Ordered By: Bradley Bennett Referrals: Pascual Mcmahon MD [Physician] - 4-7 days Discharge Diet: Advance as tolerated Discharge Activity: Resume usual activity Patient Instructions: Constipation (ED), Abdominal Pain (ED) Print Language: Mauritian Coding Level of Care Code ED Burglar Alarm Mechanic for Iam Ayala
[2024-12-26 21:11] LABS: Add Urine Microscopic? YES; Bacteria Urine TRACE /hpf; UA Manual Slide Review YES; UA Slide Review UA Slide Review Perf; WBC Urine 0-4 /hpf (0-5)
[2024-12-26 21:13] LABS: Basophils # 0.1 10^3/uL (0.0-0.1); Basophils % 0.9 %; Eosinophils # 0.2 10^3/uL (0.0-0.8); Eosinophils % 2.2 %; Hematocrit 55.1 % (37-53); Lymphocytes # 2.6 10^3/uL (0.8-4.8); Lymphocytes % 34.3 %; Mean Corpuscular HGB Conc 32.8 g/dL (30-55); Mean Corpuscular Hemoglobin 31.5 pg (27-33); Mean Platelet Volume 11.1 fL (7.4-10.4); Monocytes # 0.5 10^3/uL (0.2-0.9); Monocytes % 6.2 %; Neutrophils # 4.25 10^3/uL (1.8-7.7); Nucleated Red Blood Cells % 0 %; Platelet Count 287 10^3/cmm (157-399); Red Blood Count 5.74 10^6/uL (3.85-5.65)
[2024-12-26 21:30] LABS: Alanine Aminotransferase 47 U/L (0-41); Albumin Level 4.4 g/dL (3.5-5.2); Alkaline Phosphatase 95 U/L (40-130); Aspartate Amino Transferase 37 U/L (0-40); Blood Urea Nitrogen 11 mg/dL (6-20); Calcium 9.2 mg/dL (8.5-10.5); Carbon Dioxide 20 mmol/L (22-29); Chloride 102 mmol/L (98-107); Creatinine Clr Calc Pharmacy 112.4711; Globulin 3.2 g/dL (1.3-4.6); Glomerular Filtration Rate 90.1 mL/min (90-130); Glucose 131 mg/dL (65-115); Lipase 18 U/L (13-60); Osmolality Calculated 285 mOsm/kg (285-295); Sodium 137 mmol/L (136-145); Total Bilirubin 0.3 mg/dL (0.15-1.2); Total Protein 7.6 g/dL (6.6-8.7)
[2024-12-26 21:37] LABS: Anion Gap 19.3 (5-19); Potassium 4.3 mmol/L (3.5-5.1)
[2024-12-26 22:00] VITALS: BP 147/94; PULSE 101; RESP 16; O2SAT 98
--- NOTE | 2024-12-27 07:37 | DCPLANNER ---
Message sent to general surgery for follow up- Patient presents here with abdominal pain CT scan blood work is normal no signs of acute surgical abdomen we will get him follow-up with surgeon will place him on Protonix he is return if worsening he understands agrees to plan
== END 2024-12-26 22:43 | disposition home or self-care (01) ==
PROVIDERS: Emergency Provider Emergency Medicine
DX: R10.32 Left lower quadrant pain (principal); K59.00 Constipation, unspecified
CPT/HCPCS: 74176; 80053; 81001; 83690; 85025; 99284

== ENCOUNTER 2024-12-29 09:52 | Emergency (ER) | payer SELFPAY ==
[2024-12-29 10:07] VITALS: BP 198/119; PULSE 84; RESP 18; TEMP 36.7; O2SAT 94; BMI 27.1
--- NOTE | 2024-12-29 10:27 | CT_ITS ---
WS: [id number] CT ABDOMEN PELVIS TECHNIQUE: Contrast-enhanced CT of the abdomen and pelvis with coronal and sagittal reformatted images. CLINICAL INFORMATION: L lower abdominal pain COMPARISON: None. DLP: 650.[address] scans at [facility] use at least one of these dose optimization techniques: automated exposure control; mA and/or kV adjustment per patient size (includes targeted exams where dose is matched to clinical indication); or iterative reconstruction. FINDINGS: Hepatomegaly. Diffuse fatty infiltration of the liver. Adrenal glands are normal. Small RIGHT adrenal nodule measuring 11 mm likely adenoma. Normal GE junction. Splenic granulomas. No hydronephrosis in either kidney. Tiny RIGHT renal cyst. Prostate enlargement measuring 4.2 cm. Normal sigmoid colon. Normal appendix. Normal caliber abdominal aorta. Celiac and SMA are patent. Normal pancreatic parenchymal enhancement. Fat-containing umbilical hernia. No other acute findings. CT/CT abdomen pelvis w con* [id number] IMPRESSION: 1. Hepatomegaly with steatosis. 2. No hydronephrosis in the kidney. 3. Normal appendix. 4. Mild prostate enlargement measuring 4.3 cm. Recommend correlation PSA. 5. No other suspicious findings. Notified KAI Cook at 12/29/2024 11:18 AM.
--- NOTE | 2024-12-29 10:28 | ED_ITS ---
HPI - Abdominal Pain 2 General: Chief Complaint: Abdominal Pain Stated Complaint: abd pain, dizzy Time Seen by Provider: 12/29/24 10:17 Source: patient Mode of arrival: ambulatory Limitations: no limitations History of Present Illness: Patient is a 49-year-old male presents to ED today with complaint of left lower quadrant abdominal pain. He arrives visibly uncomfortable. He states pain has been intermittent over the past 3 months or so. He is not complaining of any changes to his bowel movements and states he normally has several bowel movements daily. He was seen here a few days ago and told this could be secondary to constipation as there was constipation seen on CT imaging. Patient feels like he has full/complete bowel evacuation during bowel movements. He is not complaining of any urinary symptoms. No nausea or vomiting. He does report frequent and heavy alcohol use. Has not noticed any black or tarry stools. He has no epigastric pain. No vomiting. He is not having any flank pain. No fevers. He has never seen primary care or specialty care for his discomfort. He has not noticed any masses or bulges that makes him concerned for hernia. He has not found any alleviating or worsening factors to his discomfort. MD elicited complaint: abdominal pain Pertinent past history: none Onset (ago): month(s) Pain Consistency: intermittent Location: LLQ Severity: severe Radiation: none Migration to: no migration Exacerbating factors: nothing Relieving factors: nothing Associated Symptoms: Denies change in bowel habits, chills, constipation, diarrhea, dysuria, fever(s), hematochezia, hematuria, melena and vomiting Related Data Home Medications ?Medication ?Instructions ?Recorded ?Confirmed acetaminophen 500 mg tablet 1,000 mg PO Q6H PRN Fever Or Pain 12/29/24 12/29/24 (Tylenol Extra Strength) Previous Rx's ?Medication ?Instructions ?Recorded ondansetron 4 mg disintegrating 4 mg PO Q6H PRN nausea and 12/26/24 tablet vomiting #14 tabs pantoprazole 40 mg tablet,delayed 40 mg PO DAILY #60 t abs 12/26/24 release (Protonix) polyethylene glycol 3350 17 gram 17 g PO DAILY PRN con stipation #14 12/26/24 oral powder packet (Miralax) ea Allergies Allergy/AdvReac Type Severity Reaction Status Date / Time No Known Allergies Allergy Verified 12/26/24 18:48 Review of Systems 2 Const: Denies: fever(s), chills, body aches, fatigue or malaise Card: Denies: chest pain Resp: Denies: dyspnea GI: Reports: abdominal pain; Denies: vomiting, diarrhea, constipation, change in bowel habits, hematochezia or melena : Denies: flank pain, dysuria, urinary incontinence, hematuria or penile discharge Musc: Denies: back pain Skin/Breast: Denies: rash Neuro: Denies: headache(s) or dizziness PFSH ED 2 PFSH: Medical History Depression Depression Surgical History No pertinent past surgical history Family History Brother Suicide Social History Smoking and tobacco/nicotine status: never used tobacco/nicotine Alcohol intake: never Substance/Drug Use: never Physical Exam 2 Const: COMMON NORMALS: average body habitus, patient oriented x3, no limitations, healthy appearing, alert and well nourished GENERAL APPEARANCE: in distress (restless; complaining of abdominal pain) O RIENTATION/CONSCIOUSNESS: Yes awake, Yes oriented to person, Yes oriented to place and Yes oriented to time Eye: COMMON NORMALS: Equal, round and reactive pupils present GENERAL EYE: normal light reflex PUPIL: Yes Equal, round and reactive pupils present D IRECT OPHTHALMOSCOPY: Yes normal light reflex OTHER: eyes appear bloodshot Neck/C-Spine: COMMON NORMALS: full ROM, no lymphadenopathy and no meningeal signs GENERAL: Yes normal visual inspection Resp: COMMON NORMALS: normal respiratory effort and clear to auscultation bilaterally AUSCULTATION: clear to auscultation bilaterally Cardio: COMMON NORMALS: regular rate and regular rhythm RATE: regular rate RHYTHM: regular rhythm GI: COMMON NORMALS: Normal to inspection, nondistended, normoactive bowel sounds present, Soft to palpation, No hepatosplenomegaly present and no masses INSPECTION: Yes normal to inspection AUSCULTATION: Yes normoactive bowel sounds PALPATION: Yes Soft to palpation, Yes Tenderness to palpation present (GI) (LLQ) and Yes No hepatosplenomegaly present : COMMON NORMALS: Yes no CVA tenderness BLADDER/KIDNEY EXAM: Yes no CVA tenderness PENIS: normal penis SCROTUM: Yes testes descended bilaterally TESTES: Yes testicular lie normal, No testicular swelling and No testicular tenderness Back/Pelvis: COMMON NORMALS: no CVA tenderness, thoracic and lumbar spine normal to inspection and no thoracic nor lumbar tenderness Extremity: GENERAL: Yes normal exam except as noted Neuro: COMMON NORMALS: patient oriented x3, moves all extremities, no focal motor deficits, no sensory deficits noted and gait normal S ENSORIUM/ORIENTATION: Yes alert, Yes oriented to person, Yes oriented to place and Yes oriented to time MENINGEAL SIGNS: Yes no meningeal signs Skin: COMMON NORMALS: no rashes or lesions noted GENERAL SKIN EXAM: no rashes or lesions noted Course 2 Vital Signs: Vital signs: Vital Signs Temperature 98.1 F 12/29/24 10:07 Pulse Rate 82 12/29/24 11:12 Respiratory Rate 16 12/29/24 10:40 Blood Pressure 158/111 12/29/24 11:12 Pulse Oximetry 92 12/29/24 11:12 Oxygen Delivery Me thod Room Air 12/29/24 10:07 MDM - Abdominal Pain Medical Decision Making On re-examination, patient is sleeping/resting comfortably in no acute distress. He arrived hypertensive. States his normal blood pressures at home are 140s/80s. Recommend he keep a blood pressure log. I will have case management set him up with primary care for ER follow-up. I will also have him see general surgery for further evaluation of his left lower quadrant pain. His blood work here is unremarkable. UA is clear. Spoke to Dr. Boucher regarding his CT abdomen and pelvis he stated there were no acute abnormalities appreciated. Patient will be allowed discharge with return precautions. Differential Diagnosis Likely abdominal pain Medical Records I reviewed the patient's medical records. Lab Data I reviewed the patient's lab results. 12/29/24 10:25 12/29/24 10:25 Labs/Radiology: Laboratory Results WBC 7.68 10^3/uL (3.29-11.43) 12/29/24 10:25 RBC 5.52 10^6/uL (3.85-5.65) 12/29/24 10:25 Hgb 17.20 g/dL (11.27-16.99) H 12/29/24 10:25 Hct 50.9 % (37-53) 12/29/24 10:25 MCV 92.2 fl (82-101) 12/29/24 10:25 MCH 31.2 pg (27-33) 12/29/24 10:25 MCHC 33.8 g/dL (30-55) 12/29/24 10:25 RDW 13.2 % (12.1-15.1) 12/29/24 10:25 Plt Count 325 10^3/cmm (157-399) 12/29/24 10:25 MPV 11.1 fL (7.4-10.4) H 12/29/24 10:25 Neut % (Auto) 56.1 % 12/29/24 10:25 Lymph % (Auto) 30.9 % 12/29/24 10:25 [place] % (Auto) 8.6 % 12/29/24 10:25 Eos % (Auto) 2.7 % 12/29/24 10:25 Baso % (Auto) 1.2 % 12/29/24 10:25 Neut # (Auto) 4.31 10^3/uL (1.8-7.7) 12/29/24 10:25 Lymph # (Auto) 2.4 10^3/uL (0.8-4.8) 12/29/24 10:25 [place] # (Auto) 0.7 10^3/uL (0.2-0.9) 12/29/24 10:25 Eos # (Auto) 0.2 10^3/uL (0.0-0.8) 12/29/24 10:25 Baso # (Auto) 0.1 10^3/uL (0.0-0.1) 12/29/24 10:25 Nucleated RBC % (auto) 0 % 12/29/24 10:25 Nucleated RBCs # 0.0 /100WBC 12/29/24 10:25 Sodium 138 mmol/L (136-145) 12/29/24 10:25 Potassium 4.7 mmol/L (3.5-5.1) 12/29/24 10:25 Chloride 100 mmol/L (98-107) 12/29/24 10:25 Carbon Dioxide 29 mmol/L (22-29) 12/29/24 10:25 Anion Gap 13.7 (5-19) 12/29/24 10:25 BUN 15 mg/dL (6-20) 12/29/24 10:25 Creatinine 1.1 mg/dL (0.7-1.2) 12/29/24 10:25 GFR Calculation 71.4 mL/min (90-130) L 12/29/24 10:25 Glucose 86 mg/dL (65-115) 12/29/24 10:25 Calculated Osmolality 286 mOsm/kg (285-295) 12/29/24 10:25 Calcium 9.7 mg/dL (8.5-10.5) 12/29/24 10:25 Total Bilirubin 0.4 mg/dL (0.15-1.2) 12/29/24 10:25 AST 38 U/L (0-40) 12/29/24 10:25 ALT 54 U/L (0-41) H 12/29/24 10:25 Alkaline Phosphatase 93 U/L (40-130) 12/29/24 10:25 Total Protein 7.9 g/dL (6.6-8.7) 12/29/24 10:25 Albumin 4.6 g/dL (3.5-5.2) 12/29/24 10:25 Globulin 3.3 g/dL (1.3-4.6) 12/29/24 10:25 Lipase 19 U/L (13-60) 12/29/24 10:25 Urine Color Yellow (Yellow) 12/29/24 10:42 Urine Appearance Clear (CLEAR) 12/29/24 10:42 Urine pH 7.0 (5-7) 12/29/24 10:42 Ur Specific [place] 1.018 (1.005-1.030) 12/29/24 10:42 Urine Protein Negative (Negative) 12/29/24 10:42 Urine Glucose (UA) Negative (Normal) 12/29/24 10:42 Urine Ketones Negative (Negative) 12/29/24 10:42 Urine Blood Negative (Negative) 12/29/24 10:42 Urine Nitrate Negative (Negative) 12/29/24 10:42 Urine Bilirubin Negative (Negative) 12/29/24 10:42 Urine Urobilinogen 0.2 mg/dL (Negative) 12/29/24 10:42 Ur Leukocyte Esterase Negative (Negative) 12/29/24 10:42 Urine RBC 0-4 /hpf (0-2) H 12/29/24 10:42 Urine WBC 0-4 /hpf (0-5) H 12/29/24 10:42 Ur Squamous Epith Cells 0-4 /hpf (0-5) H 12/29/24 10:42 Amorphous Sediment Not Reportable 12/29/24 10:42 Urine Bacteria Trace /hpf (NONE) 12/29/24 10:42 Urine Mucus Trace /hpf 12/29/24 10:42 All radiology interpretation(s) finalized by discharge Discharge Plan Discharge Patient Disposition: Home Clinical Impression: Abdominal pain Qualifiers: Abdominal location: left lower quadrant Qualified Code(s): R10.32 - Left lower quadrant pain Condition: Stable Prescriptions: No Action polyethylene glycol 3350 [Miralax] 17 gram powder in packet 17 g PO DAILY PRN (Reason: constipation) Qty: 14 0RF pantoprazole [Protonix] 40 mg tablet,delayed release (DR/EC) 40 mg PO DAILY Qty: 60 0RF ondansetron 4 mg tablet,disintegrating 4 mg PO Q6H PRN (Reason: nausea and vomiting) Qty: 14 0RF acetaminophen [Tylenol Extra Strength] 500 mg Tablet 1,000 mg PO Q6H PRN (Reason: Fever Or Pain) Discharge Orders: Discharge ED (Routine); Ordered 12/29/24 Ordered By: Sheri Mendoza Patient Instructions: Abdominal Pain (ED) Activity Restrictions/Additional Instructions: As we discussed, we have case management set you up with a primary care provider for ER follow-up. Will also have you follow-up with general surgery for further evaluation of your left lower abdominal pain. Print Language: [place] Coding Level of Care Code ED Beam Saw Operator for Iam Ayala
[2024-12-29] MEDS: ondansetron 2 mg/ML SDV 2 mL 4 MG IVP (10:38)
[2024-12-29 10:39] LABS: Basophils # 0.1 10^3/uL (0.0-0.1); Basophils % 1.2 %; Eosinophils # 0.2 10^3/uL (0.0-0.8); Eosinophils % 2.7 %; Hematocrit 50.9 % (37-53); Lymphocytes # 2.4 10^3/uL (0.8-4.8); Lymphocytes % 30.9 %; Mean Corpuscular HGB Conc 33.8 g/dL (30-55); Mean Corpuscular Hemoglobin 31.2 pg (27-33); Mean Corpuscular Volume 92.2 fl (82-101); Mean Platelet Volume 11.1 fL (7.4-10.4); Monocytes # 0.7 10^3/uL (0.2-0.9); Monocytes % 8.6 %; Neutrophils # 4.31 10^3/uL (1.8-7.7); Neutrophils % 56.1 %; Nucleated Red Blood Cells % 0 %; Platelet Count 325 10^3/cmm (157-399); Red Blood Count 5.52 10^6/uL (3.85-5.65); Red Cell Distribution Width 13.2 % (12.1-15.1); White Blood Count 7.68 10^3/uL (3.29-11.43)
[2024-12-29 10:40] VITALS: RESP 16
[2024-12-29] MEDS: morphine 4 mg/mL SDV 1 mL IVP (10:40)
--- NOTE | 2024-12-29 10:41 | PC.PHAR ---
Patient states he took his Miralax last night and wasn't aware of other medicationscalled in from earlier visit. Patient also states day before yesterday before coming in to the ER he had taken someone elses Hydrocodone 5/325 for the pain . Yesterday he took tylenol and last night the miralax.
[2024-12-29 10:53] LABS: Alanine Aminotransferase 54 U/L (0-41); Albumin Level 4.6 g/dL (3.5-5.2); Alkaline Phosphatase 93 U/L (40-130); Anion Gap 13.7 (5-19); Aspartate Amino Transferase 38 U/L (0-40); Blood Urea Nitrogen 15 mg/dL (6-20); Calcium 9.7 mg/dL (8.5-10.5); Carbon Dioxide 29 mmol/L (22-29); Chloride 100 mmol/L (98-107); Creatinine Clr Calc Pharmacy 96.2366; Globulin 3.3 g/dL (1.3-4.6); Glomerular Filtration Rate 71.4 mL/min (90-130); Glucose 86 mg/dL (65-115); Lipase 19 U/L (13-60); Osmolality Calculated 286 mOsm/kg (285-295); Potassium 4.7 mmol/L (3.5-5.1); Sodium 138 mmol/L (136-145); Total Bilirubin 0.4 mg/dL (0.15-1.2); Total Protein 7.9 g/dL (6.6-8.7)
[2024-12-29] MEDS: iohexol 350 mg/mL 500 mL Btl (per mL) IV (10:53)
[2024-12-29 10:58] LABS: Bilirubin Urine Negative (Negative); Blood Urine Negative (Negative); Glucose Urine UA Negative (Normal); Ketones Urine Negative (Negative); Leukocyte Esterase Urine Negative (Negative); Nitrate Urine Negative (Negative); Protein Urine Negative (Negative); Specific Gravity, Urine 1.018 (1.005-1.030); Urine Appearance Clear (CLEAR); Urine Color Yellow (Yellow); Urobilinogen Urine 0.2 mg/dL (Negative)
[2024-12-29 11:06] LABS: Add Urine Microscopic? YES; Bacteria Urine TRACE /hpf; Mucus Urine TRACE /hpf; RBC Urine 0-4 /hpf (0-2); Squamous Epithelial Cell Urine 0-4 /hpf (0-5); WBC Urine 0-4 /hpf (0-5)
[2024-12-29] MEDS: hyDRALAzine 20 mg/mL INJ 1 mL 10 MG IVP (11:11)
[2024-12-29 11:12] VITALS: BP 158/111; PULSE 82; O2SAT 92
[2024-12-29 11:43] VITALS: BP 157/108; PULSE 91; O2SAT 96
== END 2024-12-29 11:44 | disposition home or self-care (01) ==
PROVIDERS: Emergency Provider Physician Assistant
DX: R10.32 Left lower quadrant pain (principal)
CPT/HCPCS: 74177; 80053; 81001; 83690; 85025; 96374; 96375; 99285; J0360; J2270; J2405